=== PATIENT | male | born 1985 | race Caucasian/White ===

== ENCOUNTER 2019-01-04 11:55 | Emergency (ER) | payer BC ==
[~2019-01-04] VITALS: Ht 188 cm; Wt 88.6 kg
[~2019-01-04 11:55] MED LIST: LORTAB 5/500 501 TAB PO; NAPROSYN PO; NO HOME MEDICATIONS
[2019-01-04 12:16] VITALS: BP 148/81; PULSE 61; TEMP 97.8
== END 2019-01-04 13:10 | disposition home or self-care (01) ==
LOC: COL.ER 11:55
DX: L24.9 Irritant contact dermatitis, unspecified cause (principal)